=== PATIENT | female | born 1995 | race African-American/Black ===

== ENCOUNTER 2022-11-05 15:07 | Inpatient (IN) | payer MEDICAID ==
[~2022-11-05] VITALS: Ht 157.5 cm; Wt 79.3 kg
[2022-11-05] MEDS ORDERED: SERT-162 PO (15:15)
[2022-11-05] MEDS ORDERED: ARIP15TA27 PO (15:15)
[2022-11-05 15:45] LABS: BASOPHILS % (AUTO) 0.8 % (0.0-2.0); EOSINOPHILS % (AUTO) 0.9 % (1.0-6.0); HEMATOCRIT 26.3 % (36-46); HEMOGLOBIN 7.6 g/dL (12.0-16.0); LYMPHOCYTES # (AUTO) 1.3 K/uL (1.0-4.8); LYMPHOCYTES % (AUTO) 39.5 % (22.0-44.0); MEAN CORPUSCULAR HEMOGLOBIN 16.3 pg (26.0-34.0); MEAN CORPUSCULAR HGB CONC 28.7 G/dL (31.0-37.0); MEAN CORPUSCULAR VOLUME 57 fL (80-100); MONOCYTES # (AUTO) 0.5 K/uL (0.1-1.0); NEUTROPHILS # (AUTO) 1.4 K/uL (1.8-7.7); NEUTROPHILS % (AUTO) 42.8 % (40.0-70.0); PLATELET COUNT (AUTO) 257 K/uL (150-450); RED BLOOD CELL COUNT(AUTO) 4.62 MIL/uL (4.00-5.20); RED CELL DISTRIBUTION WIDTH 20.8 % (11.5-14.5); WHITE BLOOD COUNT (AUTO) 3.2 K/uL (4.5-11.0)
[2022-11-05 15:55] LABS: ANION GAP 11 mmol/L (8-16); CALCIUM, TOTAL 8.9 mg/dL (8.8-10.5); CARBON DIOXIDE 23 mmol/L (22-29); CHLORIDE 101 mmol/L (98-107); CREATININE 0.69 mg/dL (0.60-1.30); GLOMERULAR FILTR. RATE CALC > 60 mL/min (>60); GLUCOSE,RANDOM 86 mg/dL (70-110); SODIUM SERUM 135 mmol/L (136-145); UREA NITROGEN, BLOOD 7 mg/dL (7-18)
[2022-11-05 15:58] LABS: PLATELET MORPHOLOGY COMMENT LARGE PLTS PRESENT; RBC MORPHOLOGY COMMENT ABNORMAL RBC MORPH
[2022-11-05 16:01] LABS: ALANINE AMINOTRANSFERASE 262 U/L (12-78); ALBUMIN 3.7 g/dL (3.4-5.0); ALKALINE PHOSPHATASE 137 U/L (46-116); ASPARTATE AMINOTRANSFERASE 197 U/L (15-37); BILIRUBIN,TOTAL 0.4 mg/dL (0.1-1.0); TOTAL PROTEIN, SERUM 7.7 g/dL (6.4-8.2)
[2022-11-05 16:09] LABS: ALCOHOL, BLOOD (SERUM) < 3 mg/dL (0-10)
[2022-11-05 16:58] LABS: PH,URINE DRUG SCREEN 6.5 (5.0-8.0)
[2022-11-05] MEDS ORDERED: HALOPERIDOL 5 MG TABLET PO PRN (17:00)
[2022-11-05 17:04] LABS: ALCOHOL, URINE DRUG SCREEN NEGATIVE (NEGATIVE); AMPHET/METH SCREEN,URINE NEGATIVE (NEGATIVE); BARBITURATE SCREEN, URINE NEGATIVE (NEGATIVE); BENZODIAZEPINES SCREEN,URINE NEGATIVE (NEGATIVE); CANNABINOID SCREEN,URINE NEGATIVE (NEGATIVE); COCAINE SCREEN,URINE NEGATIVE (NEGATIVE); METHADONE SCREEN, URINE NEGATIVE (NEGATIVE); OPIATE SCREEN,URINE NEGATIVE (NEGATIVE); PHENCYCLIDINE SCREEN,URINE NEGATIVE (NEGATIVE)
[2022-11-05 18:06] LABS: COVID AG,FIA SOURCE NASOPHARYNGEAL
[2022-11-05 18:26] LABS: SARS-COV2 (COVID) ANTIGEN,FIA Negative (Negative)
[2022-11-05 22:06] VITALS: BP 104/64; PULSE 69; RESP 19; TEMP 98.1
[2022-11-06] MEDS: ZOLPIDEM TARTRATE 10 MG TABLET PO PRN ×2 (00:49→22:09)
[2022-11-06] MEDS ORDERED: OMEPRAZOLE 20 MG CAPSULE PO PRN (05:45)
[2022-11-06] MEDS ORDERED: ACETAMINOPHEN 325 MG TABLET PO PRN (05:45)
[2022-11-06] MEDS ORDERED: ONDANSETRON HCL 4 MG TABLET PO PRN (05:45)
[2022-11-06] MEDS ORDERED: IBUPROFEN 600 MG TABLET PO PRN (05:45)
[2022-11-06] MEDS ORDERED: BENZOCAINE/MENTHOL LOZENGE PO PRN (05:45)
[2022-11-06] MEDS ORDERED: LOPERAMIDE HCL 2 MG CAPSULE PO PRN (05:45)
[2022-11-06] MEDS ORDERED: ALBUTEROL SULFATE HFA 90 MCG/PUFF 8 GM INHALER IH PRN (05:45)
[2022-11-06] MEDS ORDERED: CloNIDine HCL 0.1 MG TABLET PO PRN (05:45)
[2022-11-06] MEDS ORDERED: MAG HYDROX/AL HYDROX/SIMETH ES 30 ML SUSPENSION UDCUP PO PRN (05:45)
[2022-11-06] MEDS ORDERED: PETROLATUM,WHITE 28 GM JELLY TP PRN (05:45)
[2022-11-06] MEDS ORDERED: DOCUSATE SODIUM 100 MG CAPSULE PO PRN (05:45)
[2022-11-06] MEDS ORDERED: BACITRACIN 28 GM OINTMENT TP PRN (05:45)
[2022-11-06] MEDS ORDERED: MAGNESIUM HYDROXIDE SUSPENSION 30 ML UDCUP PO PRN (05:45)
[2022-11-06] MEDS: FERROUS SULFATE 325 MG EC TABLET PO SCH ×2 (06:47→16:23)
[2022-11-06] MEDS: MULTIVITAMINS WITH MINERALS, THERAPEUTIC TABLET PO SCH (09:06)
[2022-11-06 09:54] VITALS: BP 102/62; PULSE 71; RESP 18; TEMP 97.7
[2022-11-06] MEDS: ARIPiprazole 5 MG TABLET PO SCH (11:56)
[2022-11-06] MEDS: SERTRALINE HCL 100 MG TABLET PO SCH (11:56)
[2022-11-06 21:07] VITALS: BP 97/58; PULSE 65; RESP 18; TEMP 98.1
[2022-11-06] MEDS: LORazepam 2 MG TABLET PO PRN (22:09)
[2022-11-07] MEDS: FERROUS SULFATE 325 MG EC TABLET PO SCH ×2 (06:43→16:10)
[2022-11-07 08:23] LABS: CHOL/HDL RATIO 1.8 (3.9-5.7); THYROID STIMULATING HORMONE 1.43 uIU/mL (0.36-3.74)
[2022-11-07] MEDS: ARIPiprazole 5 MG TABLET PO SCH (08:39)
[2022-11-07] MEDS: SERTRALINE HCL 100 MG TABLET PO SCH (08:40)
[2022-11-07] MEDS: MULTIVITAMINS WITH MINERALS, THERAPEUTIC TABLET PO SCH (08:40)
[2022-11-07 08:49] LABS: % IRON SATURATION 13.5 % (22-44)
[2022-11-07 11:02] VITALS: BP 99/68; PULSE 68; RESP 18; TEMP 98
[2022-11-07 21:55] VITALS: BP 103/58; PULSE 62; RESP 19; TEMP 98.2
[2022-11-08 05:07] LABS: HEPATITIS A ANTIBODY IGM Negative (Negative); HEPATITIS B CORE IGM Negative (Negative); HEPATITIS C AB (EIA) Non Reactive (Non Reactive)
[2022-11-08] MEDS: FERROUS SULFATE 325 MG EC TABLET PO SCH ×2 (06:56→16:21)
[2022-11-08] MEDS: ARIPiprazole 5 MG TABLET PO SCH (08:46)
[2022-11-08] MEDS: MULTIVITAMINS WITH MINERALS, THERAPEUTIC TABLET PO SCH (08:46)
[2022-11-08] MEDS: SERTRALINE HCL 100 MG TABLET PO SCH (08:46)
[2022-11-08 13:57] VITALS: BP 96/57; PULSE 61; RESP 18; TEMP 97.4
[2022-11-08 21:54] VITALS: BP 98/69; PULSE 61; RESP 18; TEMP 98.4
[2022-11-09] MEDS: FERROUS SULFATE 325 MG EC TABLET PO SCH ×2 (06:43→16:43)
[2022-11-09 08:21] VITALS: BP 91/51; PULSE 53; RESP 18; TEMP 98.4
[2022-11-09] MEDS: MULTIVITAMINS WITH MINERALS, THERAPEUTIC TABLET PO SCH (09:21)
[2022-11-09] MEDS: SERTRALINE HCL 100 MG TABLET PO SCH (09:21)
[2022-11-09] MEDS: ARIPiprazole 5 MG TABLET PO SCH (09:21)
[2022-11-09] MEDS: LORazepam 2 MG TABLET PO PRN (18:20)
[2022-11-09 22:17] VITALS: BP 108/71; PULSE 62; RESP 18; TEMP 98
[2022-11-10] MEDS: FERROUS SULFATE 325 MG EC TABLET PO SCH ×2 (06:34→16:34)
[2022-11-10 09:18] VITALS: BP 91/57; PULSE 71; RESP 18; TEMP 97.7
[2022-11-10] MEDS: ARIPiprazole 5 MG TABLET PO SCH (10:44)
[2022-11-10] MEDS: MULTIVITAMINS WITH MINERALS, THERAPEUTIC TABLET PO SCH (10:44)
[2022-11-10] MEDS: SERTRALINE HCL 100 MG TABLET PO SCH (10:44)
[2022-11-10 22:48] VITALS: BP 125/61; PULSE 60; RESP 19; TEMP 98
[2022-11-11] MEDS: FERROUS SULFATE 325 MG EC TABLET PO SCH ×2 (06:35→17:22)
[2022-11-11 09:46] VITALS: BP 90/57; PULSE 63; RESP 16; TEMP 97.6
[2022-11-11] MEDS: MULTIVITAMINS WITH MINERALS, THERAPEUTIC TABLET PO SCH (10:12)
[2022-11-11] MEDS: SERTRALINE HCL 100 MG TABLET PO SCH (10:12)
[2022-11-11] MEDS: ARIPiprazole 5 MG TABLET PO SCH (10:12)
[2022-11-11 22:24] VITALS: BP 104/61; PULSE 67; RESP 18; TEMP 97.4
[2022-11-12] MEDS: FERROUS SULFATE 325 MG EC TABLET PO SCH ×2 (06:51→16:50)
[2022-11-12 08:40] VITALS: BP 94/59; PULSE 70; RESP 18; TEMP 98.5
[2022-11-12] MEDS: MULTIVITAMINS WITH MINERALS, THERAPEUTIC TABLET PO SCH (08:49)
[2022-11-12] MEDS: SERTRALINE HCL 100 MG TABLET PO SCH (08:49)
[2022-11-12] MEDS: ARIPiprazole 5 MG TABLET PO SCH (08:49)
[2022-11-12 21:47] VITALS: BP 103/55; PULSE 54; RESP 16; TEMP 98.5
[2022-11-13] MEDS: FERROUS SULFATE 325 MG EC TABLET PO SCH (06:42)
[2022-11-13 08:01] VITALS: BP 96/60; PULSE 68; RESP 18; TEMP 97.1
[2022-11-13] MEDS: ARIPiprazole 5 MG TABLET PO SCH (09:27)
[2022-11-13] MEDS: SERTRALINE HCL 100 MG TABLET PO SCH (09:27)
[2022-11-13] MEDS: MULTIVITAMINS WITH MINERALS, THERAPEUTIC TABLET PO SCH (09:28)
[2022-11-13] MEDS ORDERED: FERR325T27 PO (15:26)
[2022-11-13] MEDS ORDERED: ARIP5TAB37 PO (15:28)
== END 2022-11-13 17:05 | disposition home or self-care (01) | DRG 750 ==
LOC: EMS 15:15 → 3EI 17:34
PROVIDERS: ADMIT Psychiatry & Neurology Psychiatry; ATTEND Psychiatry & Neurology Psychiatry
DX: F25.1 Schizoaffective disorder, depressive type (principal); R45.851 Suicidal ideations; F41.9 Anxiety disorder, unspecified; D50.9 Iron deficiency anemia, unspecified; F19.10 Other psychoactive substance abuse, uncomplicated; Z20.822 Contact with and (suspected) exposure to COVID-19; R79.89 Other specified abnormal findings of blood chemistry; G47.00 Insomnia, unspecified; K59.00 Constipation, unspecified; R74.01 Elevation of levels of liver transaminase levels; Z79.899 Other long term (current) drug therapy
CPT/HCPCS: 80053; 80061; 80074; 80307; 83540; 83550; 84443; 84703; 85025; 87081; 99285; G0480

== ENCOUNTER 2024-11-25 22:53 | Inpatient (IN) | payer MEDICAID, OTHER ==
[~2024-11-25] VITALS: Ht 162.6 cm; Wt 70.3 kg
[~2024-11-25 22:53] MED LIST: ARIP5TAB37 PO; FERR325T27 PO; SERT-162 PO
[2024-11-25 23:14] LABS: COVID AG,FIA SOURCE NASAL SWAB
[2024-11-25 23:35] LABS: CALCIUM, TOTAL 8.5 mg/dL (8.8-10.5); CREATININE 0.79 mg/dL (0.60-1.30); GLOMERULAR FILTR. RATE CALC > 60 mL/min (>60); GLUCOSE,RANDOM 94 mg/dL (70-110); SODIUM SERUM 141 mmol/L (136-145); UREA NITROGEN, BLOOD 11 mg/dL (7-18)
[2024-11-25 23:38] LABS: SARS-COV2 (COVID) ANTIGEN,FIA Negative (Negative)
[2024-11-25 23:49] LABS: PLATELET COUNT (AUTO) 408 K/uL (150-450); RED BLOOD CELL COUNT(AUTO) 4.35 MIL/uL (4.00-5.20); RED CELL DISTRIBUTION WIDTH 20.7 % (11.5-14.5); WHITE BLOOD COUNT (AUTO) 2.5 K/uL (4.5-11.0)
[2024-11-26] MEDS ORDERED: ZOLPIDEM TARTRATE 10 MG TABLET PO PRN (11:00)
[2024-11-26 14:00] VITALS: BP 108/67; PULSE 62; RESP 18; TEMP 98; O2SAT 100
[2024-11-26 18:31] VITALS: BP 108/67; PULSE 62; RESP 18; TEMP 98; O2SAT 100
[2024-11-26 20:13] VITALS: BP 110/60; PULSE 72; RESP 18; TEMP 97.7; O2SAT 98
[2024-11-27] MEDS ORDERED: IBUPROFEN 600 MG TABLET PO PRN (08:00)
[2024-11-27] MEDS ORDERED: ALBUTEROL SULFATE HFA 90 MCG/PUFF 8 GM INHALER IH PRN (08:00)
[2024-11-27] MEDS ORDERED: MAGNESIUM HYDROXIDE SUSPENSION 30 ML UDCUP PO PRN (08:00)
[2024-11-27] MEDS ORDERED: ONDANSETRON 4 MG TABLET PO PRN (08:00)
[2024-11-27] MEDS ORDERED: PETROLATUM,WHITE 28 GM JELLY TP PRN (08:00)
[2024-11-27] MEDS ORDERED: MAG HYDROX/ALUMINUM HYD/SIMETH ES 30 ML SUSPENSION UDCUP PO PRN (08:00)
[2024-11-27] MEDS ORDERED: BENZOCAINE/MENTHOL [CEPACOL] LOZENGE PO PRN (08:00)
[2024-11-27] MEDS ORDERED: OMEPRAZOLE 20 MG CAPSULE PO PRN (08:00)
[2024-11-27] MEDS ORDERED: LOPERAMIDE HCL 2 MG CAPSULE PO PRN (08:00)
[2024-11-27] MEDS ORDERED: DOCUSATE SODIUM 100 MG CAPSULE PO PRN (08:00)
[2024-11-27] MEDS ORDERED: ACETAMINOPHEN 325 MG TABLET PO PRN (08:00)
[2024-11-27] MEDS ORDERED: BACITRACIN 28 GM OINTMENT TP PRN (08:00)
[2024-11-27 08:03] LABS: PLATELET COUNT (AUTO) 391 K/uL (150-450); RED BLOOD CELL COUNT(AUTO) 4.36 MIL/uL (4.00-5.20); RED CELL DISTRIBUTION WIDTH 19.6 % (11.5-14.5); WHITE BLOOD COUNT (AUTO) 3.0 K/uL (4.5-11.0)
[2024-11-27 08:13] LABS: ALCOHOL, BLOOD (SERUM) < 3 mg/dL (0-10)
[2024-11-27 08:32] LABS: ASPARTATE AMINOTRANSFERASE 22 U/L (15-37); CALCIUM, TOTAL 8.4 mg/dL (8.8-10.5); CHOL/HDL RATIO 2.0 (3.9-5.7); CREATININE 0.58 mg/dL (0.60-1.30); GLOMERULAR FILTR. RATE CALC > 60 mL/min (>60); GLUCOSE,RANDOM 80 mg/dL (70-110); HCG,QUANTITATIVE < 1 mIU/mL (0-6); LDL CHOL (CALC.) 68 mg/dL (0-130); SODIUM SERUM 142 mmol/L (136-145); TOTAL PROTEIN, SERUM 6.4 g/dL (6.4-8.2); UREA NITROGEN, BLOOD 14 mg/dL (7-18)
[2024-11-27] MEDS: POTASSIUM CHLORIDE 20 MEQ ER TABLET PO ONE (08:49)
[2024-11-27 08:55] VITALS: BP 102/69; PULSE 75; RESP 16; TEMP 98.2; O2SAT 99
[2024-11-27 09:31] LABS: PATHOLOGY REVIEW, DIFF YES; RBC MORPHOLOGY COMMENT ABNORMAL RBC MORPH
[2024-11-27] MEDS: DOCUSATE SODIUM 100 MG CAPSULE PO SCH (10:18)
[2024-11-27] MEDS: FERROUS SULFATE 325 MG EC TABLET PO SCH (17:09)
[2024-11-27 20:06] VITALS: BP 107/63; PULSE 62; RESP 18; TEMP 98.4; O2SAT 97
[2024-11-28 08:10] VITALS: BP 101/63; PULSE 65; RESP 17; TEMP 98; O2SAT 100
[2024-11-28 20:22] VITALS: BP 105/65; PULSE 80; RESP 18; TEMP 97.5; O2SAT 100
[2024-11-29 08:45] VITALS: BP 106/64; PULSE 62; RESP 18; TEMP 98.4; O2SAT 98
[2024-11-29 20:12] VITALS: BP 102/75; PULSE 73; RESP 17; TEMP 98.2; O2SAT 99
[2024-11-30 08:59] VITALS: BP 100/68; PULSE 82; RESP 16; TEMP 98.8; O2SAT 99
[2024-11-30 20:10] VITALS: BP 104/58; PULSE 72; RESP 17; TEMP 98.2; O2SAT 100
[2024-12-01 08:35] VITALS: BP 105/69; PULSE 104; RESP 16; TEMP 98.2; O2SAT 100
[2024-12-01] MEDS ORDERED: ARIP10TA38 PO (14:11)
[2024-12-01] MEDS ORDERED: DOCU-385 PO (14:12)
== END 2024-12-01 15:16 | disposition home or self-care (01) | DRG 750 ==
LOC: EMS 22:56 → B2S 11-26 11:03
PROVIDERS: ADMIT Psychiatry & Neurology Psychiatry; ATTEND Psychiatry & Neurology Psychiatry
DX: F20.9 Schizophrenia, unspecified (principal); Z91.148 Patient's other noncompliance with medication regimen for other reason; R45.851 Suicidal ideations; F41.9 Anxiety disorder, unspecified; G47.00 Insomnia, unspecified; K59.00 Constipation, unspecified; E87.6 Hypokalemia; D50.9 Iron deficiency anemia, unspecified; Z20.822 Contact with and (suspected) exposure to COVID-19; Z72.0 Tobacco use
CPT/HCPCS: 80048; 80053; 80061; 83036; 84132; 84436; 84443; 84702; 85025; 86592; 99285; G0480

== ENCOUNTER 2024-12-17 17:32 | Inpatient (IN) | payer MEDICAID ==
[~2024-12-17] VITALS: Ht 162.6 cm; Wt 75.3 kg
[~2024-12-17 17:32] MED LIST changes: +ARIP10TA38 PO; -ARIP5TAB37 PO; +DOCU-385 PO; -FERR325T27 PO; -SERT-162 PO
[2024-12-17 17:36] VITALS: O2SAT 98
[2024-12-17] MEDS ORDERED: ARIP5TAB8 PO (17:37)
[2024-12-17 17:59] LABS: PLATELET COUNT (AUTO) 243 K/uL (150-450); RED BLOOD CELL COUNT(AUTO) 4.65 MIL/uL (4.00-5.20); RED CELL DISTRIBUTION WIDTH 36.2 % (11.5-14.5); WHITE BLOOD COUNT (AUTO) 3.4 K/uL (4.5-11.0)
[2024-12-17 18:06] LABS: CALCIUM, TOTAL 8.7 mg/dL (8.8-10.5); CREATININE 0.57 mg/dL (0.60-1.30); GLOMERULAR FILTR. RATE CALC > 60 mL/min (>60); GLUCOSE,RANDOM 111 mg/dL (70-110); SODIUM SERUM 142 mmol/L (136-145); UREA NITROGEN, BLOOD 12 mg/dL (7-18)
[2024-12-17 18:11] LABS: COVID AG,FIA SOURCE NASAL SWAB
[2024-12-17 18:39] LABS: SARS-COV2 (COVID) ANTIGEN,FIA Negative (Negative)
[2024-12-17 18:49] LABS: BAND NEUTROPHILS % (MANUAL) 0 % (0-5)
[2024-12-17 18:51] LABS: LYMPHOCYTES % (MANUAL) 30 % (22-44); MONOCYTES % (MANUAL) 12 % (2-9); SEGMENTED NEUTROPHILS % 58 % (40-70)
[2024-12-17 18:56] LABS: RBC MORPHOLOGY COMMENT ABNORMAL R
[2024-12-17] MEDS: ZOLPIDEM TARTRATE 10 MG TABLET PO PRN (23:52)
[2024-12-18 00:12] VITALS: BP 92/60; PULSE 94; RESP 16; TEMP 98.5; O2SAT 100
[2024-12-18] MEDS ORDERED: INFLUENZA VIRUS VACCINE TVS (6MO+) 2025-26/PF 45 MCG/0.5 ML SYRINGE IM. ONE (01:30)
[2024-12-18 10:23] LABS: CHOL/HDL RATIO 1.7 (3.9-5.7); LDL CHOL (CALC.) 52.0 mg/dL (0-130)
[2024-12-18] MEDS: FERROUS SULFATE 325 MG EC TABLET PO SCH (16:47)
[2024-12-18 20:04] VITALS: BP 122/83; PULSE 73; RESP 17; TEMP 98.7; O2SAT 98
[2024-12-18] MEDS: DOCUSATE SODIUM 250 MG CAPSULE PO SCH (21:06)
[2024-12-18] MEDS ORDERED: IBUPROFEN 600 MG TABLET PO PRN (23:45)
[2024-12-18] MEDS ORDERED: BENZOCAINE/MENTHOL [CEPACOL] LOZENGE PO PRN (23:45)
[2024-12-18] MEDS ORDERED: LOPERAMIDE HCL 2 MG CAPSULE PO PRN (23:45)
[2024-12-18] MEDS ORDERED: MAGNESIUM HYDROXIDE SUSPENSION 30 ML UDCUP PO PRN (23:45)
[2024-12-18] MEDS ORDERED: MAG HYDROX/ALUMINUM HYD/SIMETH ES 30 ML SUSPENSION UDCUP PO PRN (23:45)
[2024-12-18] MEDS ORDERED: ACETAMINOPHEN 325 MG TABLET PO PRN (23:45)
[2024-12-18] MEDS ORDERED: BACITRACIN 28 GM OINTMENT TP PRN (23:45)
[2024-12-18] MEDS ORDERED: ALBUTEROL SULFATE HFA 90 MCG/PUFF 8 GM INHALER IH PRN (23:45)
[2024-12-18] MEDS ORDERED: OMEPRAZOLE 20 MG CAPSULE PO PRN (23:45)
[2024-12-18] MEDS ORDERED: ONDANSETRON 4 MG TABLET PO PRN (23:45)
[2024-12-18] MEDS ORDERED: PETROLATUM,WHITE 28 GM JELLY TP PRN (23:45)
[2024-12-19 08:16] VITALS: BP 105/66; PULSE 62; RESP 19; TEMP 97; O2SAT 100
[2024-12-19 20:10] VITALS: BP 101/69; PULSE 77; RESP 17; TEMP 98.6; O2SAT 100
[2024-12-20 08:40] VITALS: BP 109/70; PULSE 69; RESP 17; TEMP 98.2; O2SAT 100
[2024-12-20 20:12] VITALS: BP 117/79; PULSE 69; RESP 17; TEMP 99; O2SAT 97
[2024-12-21 08:42] VITALS: BP 101/64; PULSE 63; RESP 17; TEMP 98.6; O2SAT 100
[2024-12-21 20:04] VITALS: BP 101/68; PULSE 73; RESP 17; TEMP 98.6; O2SAT 98
[2024-12-22 08:20] VITALS: BP 104/71; PULSE 60; RESP 17; TEMP 98.1; O2SAT 96
[2024-12-22 20:18] VITALS: BP 109/62; PULSE 74; RESP 17; TEMP 97.8; O2SAT 98
[2024-12-23 08:36] VITALS: BP 104/63; PULSE 94; RESP 17; TEMP 98.4; O2SAT 98
== END 2024-12-23 14:25 | disposition home or self-care (01) | DRG 761 ==
LOC: EMS 17:32 → B2S 21:22
PROVIDERS: ADMIT Psychiatry & Neurology Psychiatry; ATTEND Psychiatry & Neurology Psychiatry
DX: F25.9 Schizoaffective disorder, unspecified (principal); R45.851 Suicidal ideations; D50.9 Iron deficiency anemia, unspecified; F41.9 Anxiety disorder, unspecified; G47.00 Insomnia, unspecified; K59.00 Constipation, unspecified; Z20.822 Contact with and (suspected) exposure to COVID-19; F32.9 Major depressive disorder, single episode, unspecified; Z79.899 Other long term (current) drug therapy
CPT/HCPCS: 80048; 80061; 83036; 84703; 85025; 87081; 90686; 99285; G0480